=== PATIENT | female | born 1945 | race Caucasian/White ===

== ENCOUNTER 2019-06-18 17:59 | Emergency (ER) | payer MEDICARE, OTHER ==
[~2019-06-18] VITALS: Ht 152.4 cm; Wt 55.0 kg
[2019-06-18 18:05] VITALS: Ht 152.4 cm; Wt 55.0 kg
[2019-06-18] MEDS ORDERED: ACETAMINOPHEN 500 MG TAB PO STA (18:15)
[2019-06-18] MEDS ORDERED: NICARDipine HCL 30 MG CAPSULE PO ONE (18:30)
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
[2019-06-18 19:32] VITALS: BP 148/65; PULSE 66; RESP 18
== END 2019-06-18 19:49 | disposition home or self-care (01) ==
LOC: E/R 17:59
DX: I10 Essential (primary) hypertension (principal); R94.02 Abnormal brain scan
CPT/HCPCS: 70450; 71045; 80048; 80076; 85025